=== PATIENT | female | born 2000 | race African-American/Black ===

== ENCOUNTER 2020-01-11 16:12 | Emergency (ER) | payer MEDICAID ==
[~2020-01-11] VITALS: Ht 170.2 cm; Wt 60.0 kg
[2020-01-11] MEDS ORDERED: ACETAMINOPHEN 325MG TABLET PO ONE (17:15)
[2020-01-11 18:00] VITALS: BP 110/68
== END 2020-01-11 18:00 | disposition home or self-care (01) ==
LOC: ER 16:12
DX: Z03.818 Encounter for observation for suspected exposure to other biological agents ruled out (principal); R05 Cough; R50.9 Fever, unspecified; R03.0 Elevated blood-pressure reading, without diagnosis of hypertension; J45.909 Unspecified asthma, uncomplicated
CPT/HCPCS: 71045; 81025; 87635; 99284; C9803